=== PATIENT | female | born 1970 | race American Indian/Alaskan Native ===

== ENCOUNTER 2018-03-29 07:45 | Emergency (ER) | payer OTHER, BC ==
[2018-03-29 07:57] VITALS: BP 142/84
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
[2018-03-29] MEDS ORDERED: MOTRIN PO ONE (08:54)
== END 2018-03-29 09:33 | disposition home or self-care (01) ==
LOC: ED 07:45
DX: R00.0 Tachycardia, unspecified (principal); V49.88XA Car occupant (driver) (passenger) injured in other specified transport accidents, initial encounter; Y93.89 Activity, other specified; Y92.410 Unspecified street and highway as the place of occurrence of the external cause; Y99.8 Other external cause status
CPT/HCPCS: 93005; 93010; 99282